=== PATIENT | male | born 1965 | race Caucasian/White ===

== ENCOUNTER 2020-06-28 14:47 | Emergency (ER) | payer MEDICAID ==
[~2020-06-28] VITALS: Ht 180.3 cm; Wt 88.2 kg
--- NOTE | 2020-06-28 14:59 | NUR ---
While attempting to take patient's BP during triage, pt became agitated and ripped BP cuff off arm. I told pt I needed to get a set of vitals. Pt stated "I know, but you dont need to leave it tight to teach me a lesson". When asked for clarification, pt referenced that I had informed him that the BP cuff will squeeze very tight if you keep moving the arm. Pt then allowed me to replace BP cuff and take BP.
[2020-06-28] MEDS ORDERED: ondansetron 4mg rapidly disintigrating tab PO ONE (15:20)
[2020-06-28] MEDS ORDERED: HYDROcodone/acetaminophen 5mg/325mg tablet PO ONE (15:20)
[2020-06-28] MEDS ORDERED: ketorolac trometh inj. 60 MG/2 ML VIAL IM ONE (15:20)
--- NOTE | 2020-06-28 15:51 | NUR ---
Per orthotics technician, pt is refusing the study until he is more comfortable.
[2020-06-28] MEDS ORDERED: fentaNYL/PF 50MCG/1 ML 2ML syringe IM ONE (16:10)
[2020-06-28 16:54] VITALS: BP 134/83
[2020-06-28] MEDS ORDERED: ACET-2615 PO (16:58)
[2020-06-28] MEDS ORDERED: HYDR-3965 PO (16:58)
[2020-06-28] MEDS ORDERED: MELO-100 PO (16:58)
--- NOTE | 2020-06-28 17:37 | NUR ---
Patient was offered crutches but refused. Stated he "has a wheelchair"
== END 2020-06-28 17:40 | disposition home or self-care (01) ==
LOC: ER 14:48
DX: M25.561 Pain in right knee (principal); G89.29 Other chronic pain; F17.200 Nicotine dependence, unspecified, uncomplicated; F12.10 Cannabis abuse, uncomplicated; F15.10 Other stimulant abuse, uncomplicated; Z59.0 Homelessness
CPT/HCPCS: 73564; 93971; 96372; 99284; J1885; 99283